=== PATIENT | female | born 1930 ===

== ENCOUNTER 2018-07-29 06:16 | Day surgery (SDC) | payer MEDICARE ==
[2018-07-29] MEDS ORDERED: Lactated Ringer's 1,000 ML IV ONE (08:46)
[2018-07-29] MEDS ORDERED: Lidocaine Hydrochloride 10 ML INJ ONE (09:15)
[2018-07-29] MEDS ORDERED: Etomidate 20 mg/10ml Inj IV ONE (09:15)
[2018-07-29 10:00] VITALS: TEMP 98
[2018-07-29 10:08] VITALS: O2SAT 100
[2018-07-29 11:25] VITALS: BP 120/62; PULSE 60; RESP 18
== END 2018-07-29 11:25 | disposition home or self-care (01) ==
LOC: C.ENDO 06:16
PROVIDERS: ATTEND Internal Medicine Gastroenterology
DX: K29.70 Gastritis, unspecified, without bleeding (principal); K31.89 Other diseases of stomach and duodenum; D64.9 Anemia, unspecified
CPT/HCPCS: 43239; 88305; J7120